=== PATIENT | female | born 1955 | race Two or more races ===

== ENCOUNTER 2019-08-23 19:51 | Emergency (ER) | payer OTHER ==
[~2019-08-23] VITALS: Ht 157.5 cm; Wt 59.9 kg
[2019-08-23] MEDS ORDERED: ONDANSETRON HCL/PF 4 MG/2 ML VIAL ONE (20:10)
[2019-08-23] MEDS ORDERED: MECLIZINE HCL 25 MG TABLET ONE (20:11)
[2019-08-23 20:12] LABS: BASOPHILS # (AUTO) 0.2 /CMM (0.0-0.2); BASOPHILS % (AUTO) 3.2 % (0.0-2.0); HEMATOCRIT 40 % (33-45); HEMOGLOBIN 13.3 g/dL (11.5-14.8); LYMPHOCYTES # (AUTO) 1.6 /CMM (0.8-4.8); LYMPHOCYTES % (AUTO) 20.8 % (20.0-44.0); MEAN CORPUSCULAR HGB CONC 33 g/dl (31.0-36.0); MEAN CORPUSCULAR VOLUME 96 fL (82-100); MONOCYTES # (AUTO) 0.7 /CMM (0.1-1.30); MONOCYTES % (AUTO) 9.2 % (2.0-12.0); NEUTROPHILS # (AUTO) 4.9 /CMM (1.8-8.9); NEUTROPHILS % (AUTO) 62.8 % (43.0-81.0); PLATELET COUNT (AUTO) 226 /CMM (150-450); RED BLOOD CELL COUNT(AUTO) 4.16 MIL/uL (4.0-5.2); WHITE BLOOD COUNT (AUTO) 7.8 K/uL (4.3-11.0)
[2019-08-23 20:19] LABS: CALCIUM, SERUM 9.3 mg/dL (8.5-10.1); CREATININE 0.7 mg/dL (0.6-1.3); POTASSIUM 3.8 mmol/L (3.5-5.1)
[2019-08-23 20:25] LABS: ALBUMIN 4.1 g/dL (3.4-5.0); BILIRUBIN,DIRECT 0.1 mg/dL (0.0-0.2); BILIRUBIN,TOTAL 0.6 mg/dL (0.2-1.0); TOTAL PROTEIN, SERUM 8.1 g/dL (6.4-8.2)
[2019-08-23] MEDS ORDERED: MECLIZINE HCL 12.5 MG TABLET PO ONE (20:30)
[2019-08-23] MEDS ORDERED: ONDANSETRON HCL/PF 4 MG/2 ML VIAL IVP ONE (20:30)
[2019-08-23] MEDS ORDERED: IV NS 0.9% 1,000 ML BAG IV ONE (20:30)
--- NOTE | 2019-08-23 20:33 | NUR ---
PATIENT CAME TO ER BED 9 C/O LEFT-SIDED CHEST PAIN RADIATING TO THE LEFT ARM AND BACK WITH SOME TINGLING AND NUMBNESS SESNSATION. PATIENT STATES THAT SHE HAD FELT THIS PAIN SINCE THIS MORNING AND FELT DIZZINESS AND NAUSEOUS. PT ALSO STATES SOME MID EPIGASTRIC ABDOMINAL PAIN. AAOX4. NO SOB. BREATHING EVENLY AND UNLABORED ON ROOM AIR. CONNECTED TO SHELL SORTER.
--- NOTE | 2019-08-23 20:34 | NUR ---
TAKEN TO CT
--- NOTE | 2019-08-23 20:35 | NUR ---
FAMILY MEMBER (DAUGHTER) AT BEDSIDE
[2019-08-23] MEDS ORDERED: ASPIRIN EC 81 MG TABLET.DR PO ONE ×2 (21:00→21:03)
--- NOTE | 2019-08-23 21:10 | NUR ---
PT AMBULATED TO THE RESTROOM W/ DAUGHTER'S ASSISTANCE
--- NOTE | 2019-08-23 21:40 | NUR ---
CALLED ANGELA. AWAITING CALL BACK FROM
--- NOTE | 2019-08-23 21:58 | NUR ---
CALLED [facility] AND WE ARE "NEXT IN LINE" TO BE CALLED.
--- NOTE | 2019-08-23 23:00 | NUR ---
CALLED BACK AT [phone]
--- NOTE | 2019-08-23 23:42 | NUR ---
[facility] RECEIV[facility]. PT WILL BE GOING TO [facility] ER ACCEPTING ELSA PALMA PHONE # FOR REPORT [facility] WILL CALL BACK FOR TRANSPORT ETA.
--- NOTE | 2019-08-24 00:23 | NUR ---
REPORT GIVEN TO SASHA GARCIA AT [facility].
--- NOTE | 2019-08-24 00:49 | NUR ---
PT IS ACCEPTED AT [facility], DR. LUCERO , ER TRANSFER [facility] AT [phone]
[2019-08-24 01:20] VITALS: BP 139/78
--- NOTE | 2019-08-24 01:45 | NUR ---
REPORT GIVEN TO [employer] sales and service officer
== END 2019-08-24 02:12 | disposition short-term general hospital (02) ==
LOC: ER 19:53
DX: R42 Dizziness and giddiness (principal); R79.0 Abnormal level of blood mineral; I10 Essential (primary) hypertension; Z90.710 Acquired absence of both cervix and uterus; Z60.2 Problems related to living alone
CPT/HCPCS: 36415; 70450; 71045; 80048; 80076; 84484; 85025; 93005; 96361; 96374; 99285; J2405; J7030; J8597